=== PATIENT | female | born 1950 ===

== ENCOUNTER 2024-08-27 10:00 | Inpatient (IN) | payer OTHER ==
[~2024-08-27] VITALS: Ht 61 cm; Wt 65.8 kg
[2024-08-27 12:41] VITALS: BP 136/77
[2024-08-27] MEDS ORDERED: ASA81 MG PO (12:48)
[2024-08-27] MEDS ORDERED: DRIZALMA SPRINK60 MG PO (12:49)
[2024-08-27] MEDS ORDERED: [UNRECOGNIZED DRUG - SUPPLY] (12:50)
[2024-08-27] MEDS ORDERED: LANTUS SOL100 UNIT/1 (12:50)
[2024-08-27] MEDS ORDERED: XARELTO10 MG (12:51)
[2024-08-27] MEDS ORDERED: VITAMIN B-121000 MC4 PO (12:51)
[2024-08-27] MEDS ORDERED: GLIMEPIRIDE4 MG (12:51)
[2024-08-27] MEDS ORDERED: ALENDRONATE SOD70 MG PO (12:52)
[2024-08-27] MEDS ORDERED: KEVZARA200 MG/1.1 (12:52)
[2024-08-27] MEDS ORDERED: DICLOFENAC TOPICAL (12:54)
[2024-08-27] MEDS ORDERED: ACID CONTROLLER20 MG PO (12:54)
[2024-08-27] MEDS ORDERED: MAGNESIUM400 MG (12:55)
[2024-08-27] MEDS ORDERED: DIALYVITE TABL1 EACH PO (12:55)
[2024-08-27] MEDS ORDERED: METHOTREXA25 MG/1 M5 IJ (12:56)
[2024-08-27] MEDS ORDERED: MILLIPRED5 MG PO (12:56)
[2024-08-27] MEDS ORDERED: ZESTRIL40 M1 PO (12:57)
[2024-08-27] MEDS ORDERED: MAXIMUM D3325 MCG PO (12:57)
[2024-08-27] MEDS ORDERED: NEURONTIN800 MG PO (12:58)
[2024-08-27] MEDS ORDERED: METFORMIN HCL1000 M2 PO (12:59)
[2024-08-27 15:18] LABS: RH POSITIVE
[2024-08-31] MEDS ORDERED: CEFTRIAXONE SODIUM 2,000 MG VIAL IV SCH (20:00)
[2024-08-31] MEDS ORDERED: METRONIDAZOLE/SODIUM CHLORIDE 500 MG/100 ML PIGGYBACK IV SCH (20:00)
[2024-08-31] MEDS ORDERED: BUPIVACAINE HCL 30 ML VIAL IJ ONE (20:00)
[2024-08-31] MEDS ORDERED: LIDOCAINE HCL 1%/EPINEPHRINE 20ML VIAL IJ ONE (20:15)
[2024-08-31] MEDS ORDERED: GLUCAGON 1 MG VIAL IV ONE (20:15)
[2024-08-31] MEDS ORDERED: SUGAMMADEX SODIUM 200 MG/2 ML VIAL IV ONE (20:15)
[2024-08-31] MEDS ORDERED: OxyCODONE HCL 5 MG TABLET (ROXICODONE) PO PRN (20:45)
[2024-08-31] MEDS ORDERED: DEXTROSE 50 % IN WATER 0.5 G/ML DISP.SYRIN IV PRN (20:45)
[2024-08-31] MEDS ORDERED: ONDANSETRON HCL 2 MG/ML VIAL IV PRN (20:45)
[2024-08-31] MEDS ORDERED: MORPHINE SULFATE 4 MG/ML CARTRIDGE IV PRN (20:45)
[2024-08-31] MEDS ORDERED: RINGERS SOLUTION,LACTATED 1,000 ML IV SCH (20:45)
[2024-08-31] MEDS ORDERED: SIMETHICONE 125 MG CAPSULE PO SCH (21:00)
[2024-08-31] MEDS ORDERED: FAMOTIDINE/PF 20 MG/2 ML VIAL IV SCH (21:00)
[2024-08-31] MEDS ORDERED: MORPHINE SULFATE 4 MG/ML VIAL IV ONE ×2 (21:25→21:55)
[2024-08-31 22:35] VITALS: BP 153/70; O2SAT 94
[2024-08-31 23:49] LABS: HEMATOCRIT 35.7 % (36.0-45.00); HEMOGLOBIN 11.3 g/dL (12.0-15.00); MEAN CELL VOLUME 91.4 fL (80.00-100.00); MEAN CORPUSCULAR HEMOGLOBIN 29.1 pg (27.00-32.0); MEAN CORPUSCULAR HGB CONC 31.8 g/dl (32.0-36.0); PLATELET COUNT 252 K/uL (150-450); RED BLOOD COUNT 3.91 M/uL (4.00-6.00)
[2024-09-01] MEDS ORDERED: ACETAMINOPHEN 500 MG GEL..CAP PO SCH
[2024-09-01 00:02] LABS: ALBUMIN 2.5 gm/dL (3.4-5.0); CALCIUM 8.2 mg/dL (8.5-10.1); CREATININE SERUM 0.59 mg/dL (0.55-1.02); GFR 99.1; PHOSPHOROUS 3.4 mg/dL (2.5-4.9); POTASSIUM 3.96 mEq/L (3.5-5.1)
[2024-09-01] MEDS ORDERED: MAGNESIUM SULFATE IN WATER 4 GM/100 ML PIGGYBACK IV ONE (00:30)
[2024-09-01 00:52] VITALS: BP 113/69; O2SAT 95
[2024-09-01 08:10] VITALS: BP 161/69; O2SAT 98
[2024-09-01 08:26] LABS: ALBUMIN 2.4 gm/dL (3.4-5.0); CREATININE SERUM 0.45 mg/dL (0.55-1.02); GFR 135.47; MAGNESIUM 3.1 mg/dL (1.8-2.4); PHOSPHOROUS 2.7 mg/dL (2.5-4.9); POTASSIUM 3.71 mEq/L (3.5-5.1)
[2024-09-01 08:52] LABS: HEMATOCRIT 33.2 % (36.0-45.00); HEMOGLOBIN 10.7 g/dL (12.0-15.00); MEAN CELL VOLUME 90.2 fL (80.00-100.00); MEAN CORPUSCULAR HEMOGLOBIN 29.1 pg (27.00-32.0); MEAN CORPUSCULAR HGB CONC 32.3 g/dl (32.0-36.0); PLATELET COUNT 231 K/uL (150-450); RED BLOOD COUNT 3.68 M/uL (4.00-6.00); RED CELL DISTRIBUTION WIDTH 17.1 % (11.5-14.5)
[2024-09-01] MEDS ORDERED: LISINOPRIL 40 MG TABLET PO SCH (09:00)
[2024-09-01] MEDS ORDERED: MAGNESIUM CHLORIDE 70 MG TABLET.DR PO SCH (09:00)
[2024-09-01] MEDS ORDERED: GABAPENTIN 800 MG TABLET PO SCH (09:00)
[2024-09-01] MEDS ORDERED: POLYETHYLENE GLYCOL 3350 17 GM BLIST.PACK PO SCH (09:00)
[2024-09-01] MEDS ORDERED: LACTOBACILLUS ACIDOPHILUS 1 CAP CAP PO SCH (09:00)
[2024-09-01] MEDS ORDERED: ENOXAPARIN SODIUM 40 MG/0.4 ML SYRINGE SUBCUTANEO SCH (17:00)
[2024-09-01] MEDS ORDERED: ENALAPRILAT DIHYDRATE 1.25 MG/ML VIAL IV PRN (17:45)
[2024-09-01] MEDS ORDERED: INSULIN LISPRO 1,000 UNIT/10 ML UNITS SUBCUTANEO PRN (17:45)
[2024-09-01] MEDS ORDERED: DEXTROSE 50 % IN WATER 0.5 G/ML DISP.SYRIN IV PRN (17:45)
[2024-09-01] MEDS ORDERED: FAMOtidine 20 MG TABLET PO SCH (17:50)
[2024-09-01] MEDS ORDERED: POTASSIUM PHOS,M-BASIC-D-BASIC 15 MM in 0.9 % SODIUM CHLORIDE 250 ML IV ONE (18:00)
[2024-09-02] VITALS: BP 157/78; O2SAT 95
[2024-09-02 07:55] LABS: CALCIUM 8.3 mg/dL (8.5-10.1); CREATININE SERUM 0.58 mg/dL (0.55-1.02); GFR 101.07; MAGNESIUM 1.6 mg/dL (1.8-2.4); POTASSIUM 3.96 mEq/L (3.5-5.1)
[2024-09-02 08:00] VITALS: BP 140/92; O2SAT 95
[2024-09-02 08:04] LABS: HEMATOCRIT 33.6 % (36.0-45.00); HEMOGLOBIN 10.9 g/dL (12.0-15.00); MEAN CELL VOLUME 90.3 fL (80.00-100.00); MEAN CORPUSCULAR HEMOGLOBIN 29.3 pg (27.00-32.0); MEAN CORPUSCULAR HGB CONC 32.4 g/dl (32.0-36.0); PLATELET COUNT 239 K/uL (150-450); RED BLOOD COUNT 3.72 M/uL (4.00-6.00); RED CELL DISTRIBUTION WIDTH 17.3 % (11.5-14.5)
[2024-09-02 08:37] LABS: PHOSPHOROUS 1.8 mg/dL (2.5-4.9)
[2024-09-02] MEDS ORDERED: MAGNESIUM SULFATE IN WATER 50 ML IV NR (10:00)
[2024-09-02] MEDS ORDERED: POTASSIUM PHOS,M-BASIC-D-BASIC 3 MM/ML VIAL IV ONE (12:00)
[2024-09-02 15:15] VITALS: BP 137/66; O2SAT 99
[2024-09-02] MEDS ORDERED: NAPH,MB-DB/K PH,MBDB 1 PKT PACKET PO SCH (20:44)
[2024-09-03] VITALS: BP 142/71; O2SAT 97
[2024-09-03 07:01] LABS: HEMATOCRIT 29.9 % (36.0-45.00); MEAN CELL VOLUME 89.6 fL (80.00-100.00); MEAN CORPUSCULAR HEMOGLOBIN 30.1 pg (27.00-32.0); MEAN CORPUSCULAR HGB CONC 33.5 g/dl (32.0-36.0); PLATELET COUNT 229 K/uL (150-450); RED BLOOD COUNT 3.33 M/uL (4.00-6.00); RED CELL DISTRIBUTION WIDTH 17.5 % (11.5-14.5)
[2024-09-03 07:54] LABS: ALBUMIN 2.3 gm/dL (3.4-5.0); CALCIUM 8.2 mg/dL (8.5-10.1); CREATININE SERUM 0.54 mg/dL (0.55-1.02); GFR 109.76; MAGNESIUM 1.6 mg/dL (1.8-2.4); POTASSIUM 4.02 mEq/L (3.5-5.1)
[2024-09-03 08:00] VITALS: BP 150/70; O2SAT 97
[2024-09-03 08:26] LABS: PHOSPHOROUS 1.9 mg/dL (2.5-4.9)
[2024-09-03] MEDS ORDERED: IRON FUM,PS/FOLIC ACID/VITC/B3 1 CAP CAPSULE PO SCH (10:33)
[2024-09-03] MEDS ORDERED: Cyanocobalamin/Mecobalamin 1 TAB.SL SL SCH (10:34)
[2024-09-03] MEDS ORDERED: PYRIDOXINE HCL 100 MG TABLET PO SCH (10:34)
[2024-09-03] MEDS ORDERED: POTASSIUM PHOS,M-BASIC-D-BASIC 15 MM in 0.9 % SODIUM CHLORIDE 250 ML IV NR (10:45)
[2024-09-03] MEDS ORDERED: MAGNESIUM SULFATE IN WATER 2 GM/50 ML PIGGYBAG IV NR (10:45)
[2024-09-03 12:00] VITALS: BP 149/69; O2SAT 97
[2024-09-03] MEDS ORDERED: NAPH,MB-DB/K PH,MBDB 1 PKT PACKET PO SCH (17:00)
[2024-09-03 17:48] VITALS: BP 139/78; O2SAT 97
[2024-09-03 20:00] VITALS: BP 141/60
[2024-09-04 02:00] VITALS: BP 128/72; O2SAT 96
[2024-09-04 06:44] LABS: HEMATOCRIT 29.6 % (36.0-45.00); HEMOGLOBIN 9.6 g/dL (12.0-15.00); MEAN CELL VOLUME 90.8 fL (80.00-100.00); MEAN CORPUSCULAR HEMOGLOBIN 29.6 pg (27.00-32.0); MEAN CORPUSCULAR HGB CONC 32.6 g/dl (32.0-36.0); PLATELET COUNT 243 K/uL (150-450); RED BLOOD COUNT 3.26 M/uL (4.00-6.00); RED CELL DISTRIBUTION WIDTH 17.4 % (11.5-14.5)
[2024-09-04 07:15] LABS: ALBUMIN 2.2 gm/dL (3.4-5.0); CALCIUM 8.3 mg/dL (8.5-10.1); CREATININE SERUM 0.6 mg/dL (0.55-1.02); GFR 97.2; MAGNESIUM 1.7 mg/dL (1.8-2.4); POTASSIUM 4.42 mEq/L (3.5-5.1)
[2024-09-04] MEDS ORDERED: NAPH,MB-DB/K PH,MBDB 1 PKT PACKET PO STA (08:30)
== END 2024-09-04 13:26 | disposition home or self-care (01) | DRG 331 ==
LOC: SURH 08-31 07:00 → O/R 08-31 08:35 → SURH 08-31 10:00 → SURG 08-31 21:47
PROVIDERS: Internal Medicine Geriatric Medicine; ADMIT Colon & Rectal Surgery; ATTEND Colon & Rectal Surgery
PROC: 0DBP4ZZ Excision of Rectum, Percutaneous Endoscopic Approach (ICD-10-PCS; 2024-08-31)
PROC: 07BB4ZZ Excision of Mesenteric Lymphatic, Percutaneous Endoscopic Approach (ICD-10-PCS; 2024-08-31)
PROC: 0DJD8ZZ Inspection of Lower Intestinal Tract, Via Natural or Artificial Opening Endoscopic (ICD-10-PCS; 2024-08-31)
PROC: 0DTN4ZZ Resection of Sigmoid Colon, Percutaneous Endoscopic Approach (ICD-10-PCS; principal; 2024-08-31 07:00)
DX: C18.7 Malignant neoplasm of sigmoid colon (principal); D12.5 Benign neoplasm of sigmoid colon; K57.30 Diverticulosis of large intestine without perforation or abscess without bleeding; R59.0 Localized enlarged lymph nodes; E11.65 Type 2 diabetes mellitus with hyperglycemia; E83.42 Hypomagnesemia; E83.39 Other disorders of phosphorus metabolism; I11.9 Hypertensive heart disease without heart failure; Z95.1 Presence of aortocoronary bypass graft; Z79.4 Long term (current) use of insulin; Z79.84 Long term (current) use of oral hypoglycemic drugs

== ENCOUNTER 2025-06-28 08:00 | Day surgery (SDC) | payer OTHER ==
[~2025-06-28 08:00] MED LIST: ACID CONTROLLER20 MG PO; ALENDRONATE SOD70 MG PO; ASA81 MG PO; DIALYVITE TABL1 EACH PO; DICLOFENAC TOPICAL; DRIZALMA SPRINK60 MG PO; GLIMEPIRIDE4 MG; KEVZARA200 MG/1.1; LANTUS SOL100 UNIT/1; MAGNESIUM400 MG; MAXIMUM D3325 MCG PO; METFORMIN HCL1000 M2 PO; METHOTREXA25 MG/1 M5 IJ; MILLIPRED5 MG PO; NEURONTIN800 MG PO; VITAMIN B-121000 MC4 PO; XARELTO10 MG; ZESTRIL40 M1 PO; [UNRECOGNIZED DRUG - SUPPLY]
[2025-06-28] MEDS ORDERED: METRONIDAZOLE/SODIUM CHLORIDE 500 MG/100 ML PIGGYBACK IV ONE (10:15)
[2025-06-28] MEDS ORDERED: BUPIVACAINE HCL/PF 0.25% 30ML VIAL InF ONE (10:15)
[2025-06-28] MEDS ORDERED: CEFTRIAXONE SODIUM 2,000 MG VIAL IV ONE (10:15)
[2025-06-28] MEDS ORDERED: LIDOCAINE HCL 1%/EPINEPHRINE 20ML VIAL IJ ONE (10:15)
[2025-07-12] MEDS ORDERED: METRONIDAZOLE/SODIUM CHLORIDE 500 MG/100 ML PIGGYBACK IV ONE (07:02)
[2025-07-12] MEDS ORDERED: CEFTRIAXONE SODIUM 2,000 MG VIAL ONE (07:02)
[2025-07-12] MEDS ORDERED: POVIDONE-IODINE 118 ML BOTT TOP ONE (07:34)
[2025-07-12] MEDS ORDERED: BUPIVACAINE HCL/MPF 0.5% 30ML VIAL ONE (07:35)
[2025-07-12] MEDS ORDERED: LIDOCAINE HCL 1%/EPINEPHRINE 20ML VIAL IJ ONE (07:35)
== END 2025-06-28 16:35 | disposition home or self-care (01) ==
LOC: U 08:00 → CIR.AMB 08:00
PROVIDERS: ATTEND Colon & Rectal Surgery
DX: R15.9 Full incontinence of feces (principal); R32 Unspecified urinary incontinence
CPT/HCPCS: 64581; C1778